=== PATIENT | male | born 1990 | race Caucasian/White ===

== ENCOUNTER 2019-05-19 23:46 | Emergency (ER) | payer SELFPAY ==
[~2019-05-19] VITALS: Ht 180.3 cm; Wt 68.2 kg
[2019-05-19 23:46] VITALS: BP 114/55
[2019-05-20 00:33] LABS: INFLUENZA A PATIENT POSITIVE (NEGATIVE); INFLUENZA B PATIENT NEGATIVE (NEGATIVE)
--- NOTE | 2019-05-20 00:47 | PHYS DOC ---
Adult General Chief Complaint Chief Complaint: FEVER HPI HPI 28-year-old male presents with a chief complaint of fever cough nausea and vomiting. Patient states symptoms started yesterday progressively becoming worse. On arrival to the ER patient is febrile. Review of Systems Review of Systems Constitutional: Positive fevers[] Eyes: Denies change in visual acuity, redness, or eye pain [] HENT: Denies nasal congestion or sore throat [] Respiratory: As it of cough[] Cardiovascular: No additional information not addressed in HPI [] GI: Denies abdominal pain, as it of nausea positive vomiting : Denies dysuria or hematuria [] Musculoskeletal: Denies back pain or joint pain [positive muscle aches] Integument: Denies rash or skin lesions [] Neurologic: Denies headache, focal weakness or sensory changes [] Endocrine: Denies polyuria or polydipsia [] All other systems were reviewed and found to be within normal limits, except as documented in this note. Current Medications Current Medications Current Medications Medications (Trade) Dose Ordered Sig/Rosa Start Time Stop Time Status Last Admin Dose Admin Acetaminophen (Tylenol) 650 mg 1X ONCE 05/20/19 00:00 2 00:01 UNV Ondansetron HCl (Zofran Odt) 4 mg 1X ONCE 05/20/19 00:00 05/20/19 00:01 UNV Physical Exam Physical Exam Constitutional: Well developed, well nourished, no acute distress, non-toxic appearance. [] HENT: Normocephalic, atraumatic, bilateral external ears normal, oropharynx moist, no oral exudates, nose normal. [] Eyes: PERRLA, EOMI, conjunctiva normal, no discharge. [] Neck: Normal range of motion, no tenderness, supple, no stridor. [] Lungs & Thorax: Bilateral breath sounds clear to auscultation [] Abdomen: Bowel sounds normal, soft, no tenderness, no masses, no pulsatile masses. [] Skin: Warm, dry, no erythema, no rash. [] Back: No tenderness, no CVA tenderness. [] Extremities: No tenderness, no cyanosis, no clubbing, ROM intact, no edema. [] Neurologic: Alert and oriented X 3, normal motor function, normal sensory function, no focal deficits noted. [] Psychologic: Affect normal, judgement normal, mood normal. [] Current Patient Data Lab Results Laboratory Tests Test 05/20/19 00:05 Influenza Type A (Rapid) Positive (NEGATIVE) Influenza Type B (Rapid) Negative (NEGATIVE) EKG EKG [] Radiology/Procedures Radiology/Procedures [] Course & Med Decision Making Course & Med Decision Making Pertinent Labs and Imaging studies reviewed. (See chart for details) []Patient was evaluated. Influenza positive. Patient was treated with Tylenol and Zofran. Patient tolerated by mouth. Patient was discharged home with Tamiflu and Zofran. Patient advised to take Tylenol Motrin as needed for pain and fever. Dragon Disclaimer Dragon Disclaimer This electronic medical record was generated, in whole or in part, using a voice recognition dictation system. Departure Departure: Disposition: 01 HOME/RESIDENCE PRIOR TO ADM Condition: STABLE Referrals: ANNA SCHAEFER (PCP) KEERTHI GOLDMAN DO May 20, 2019 00:47
[2019-05-20] MEDS ORDERED: OSEL75CA PO (00:49)
[2019-05-20] MEDS ORDERED: ONDA4TAB7 PO (00:49)
[2019-05-20] MEDS ORDERED: ACETAMINOPHEN 325 MG TABLET PO ONE (01:00)
[2019-05-20] MEDS ORDERED: ONDANSETRON ODT 4 MG TAB.RAPDIS PO ONE (01:00)
== END 2019-05-20 01:30 | disposition home or self-care (01) ==
LOC: ER 23:46
DX: J11.1 Influenza due to unidentified influenza virus with other respiratory manifestations (principal); R11.2 Nausea with vomiting, unspecified
CPT/HCPCS: 87804; 99283; Q0162